=== PATIENT | female | born 1990 | race Caucasian/White ===

== ENCOUNTER 2016-05-11 18:37 | Emergency (ER) | payer MEDICAID, OTHER ==
[~2016-05-11] VITALS: Ht 165.1 cm; Wt 97.0 kg
[2016-05-11] MEDS ORDERED: SODIUM CHLORIDE FLUSH 10ML SYR IVF ONE (19:00)
[2016-05-11] MEDS ORDERED: SODIUM CHLORIDE 0.9% 1,000ML IVBOLUS ONE (19:00)
[2016-05-11 19:10] LABS: HEMOGLOBIN 13.9 g/dL (11.7-16.4)
[2016-05-11 19:24] LABS: ASPARTATE AMINO TRANSFERASE 12 U/L (15-37); BLOOD UREA NITROGEN 10 mg/dL (7-18)
[2016-05-11 20:17] LABS: PATH.CAST-FLAG NOT PRESENT; SPERM-FLAG NOT PRESENT; SRC-FLAG NOT PRESENT; XTAL-FLAG NOT PRESENT; YLC-FLAG NOT PRESENT
[2016-05-11 20:38] VITALS: BP 118/71
== END 2016-05-11 20:40 | disposition home or self-care (01) ==
LOC: ED 20:01
DX: O20.0 Threatened abortion (principal)
CPT/HCPCS: 36415; 51701; 76801; 80053; 81001; 84702; 85025; 86901; 87086; P9612

== ENCOUNTER 2016-12-03 14:20 | Outpatient (CLI) | payer MEDICAID | END 2016-12-03 16:53 | disposition home or self-care (01) | LOC: LDOP 14:20 | PROVIDERS: ATTEND Obstetrics & Gynecology | DX: O42.913 Preterm premature rupture of membranes, unspecified as to length of time between rupture and onset of labor, third trimester (principal); Z3A.34 34 weeks gestation of pregnancy | CPT/HCPCS: 59025; 89060; 99211; G0463; Q0114 ==

== ENCOUNTER 2017-01-03 03:57 | Inpatient (IN) | payer MEDICAID ==
[~2017-01-03] VITALS: Ht 165.1 cm; Wt 117.0 kg
[2017-01-03] MEDS ORDERED: D5%-LACTATED RINGERS 1,000 ML IV SCH (04:50)
[2017-01-03] MEDS ORDERED: OXYTOCIN 30U/ 0.9% NaCL 500ML 500 ML IV ONE (04:50)
[2017-01-03 04:56] VITALS: BP 140/87
[2017-01-03] MEDS ORDERED: NEWBORN KIT ONE (04:59)
[2017-01-03] MEDS ORDERED: ONDANSETRON 2MG/ML, 2ML IVPush PRN (05:00)
[2017-01-03] MEDS ORDERED: METOCLOPRAMIDE 5 MG/ML, 2ML IVPush PRN (05:00)
[2017-01-03] MEDS ORDERED: SODIUM CITRATE/CITRIC ACID 30 ML UDC PO PRN (05:00)
[2017-01-03] MEDS ORDERED: CALCIUM CARBONATE 500 MG TAB.CHEW PO PRN (05:00)
[2017-01-03] MEDS ORDERED: FENTANYL PF 100 MCG/2ML IVPush PRN (05:00)
[2017-01-03] MEDS ORDERED: OXYTOCIN 30U/ 0.9% NaCL 500ML 500 ML ONE ×2 (05:39→15:23)
[2017-01-03 06:10] LABS: HEMATOCRIT 32.7 % (34.6-47.8); HEMOGLOBIN 11.1 g/dL (11.7-16.4); WHITE BLOOD COUNT 9.9 x10^3/uL (3.4-10)
[2017-01-03 06:21] LABS: ASPARTATE AMINO TRANSFERASE 12 U/L (15-37); BLOOD UREA NITROGEN 13 mg/dL (7-18)
[2017-01-03] MEDS ORDERED: OXYTOCIN 30U/ 0.9% NaCL 500ML 500 ML IV PRN (15:26)
[2017-01-03] MEDS ORDERED: BUPIVACAINE/PF 0.25% ONE (15:31)
[2017-01-03] MEDS ORDERED: FENTANYL/BUPIV./NS/PF 250 ML EPIDCONT ONE (15:31)
[2017-01-03] MEDS ORDERED: BUPIVACAINE 0.25% ONE (15:35)
[2017-01-03] MEDS: LACTATED RINGERS 1,000 ML IV SCH ×2 (15:59→20:08)
[2017-01-03] MEDS ORDERED: LACTATED RINGERS 1,000 ML IV SCH (16:03)
[2017-01-03] MEDS ORDERED: FENTANYL/BUPIV./NS/PF 250 ML EPIDCONT SCH (16:03)
[2017-01-03] MEDS ORDERED: LACTATED RINGERS 1,000 ML IVBOLUS PRN (16:30)
[2017-01-03] MEDS ORDERED: ONDANSETRON 2MG/ML, 2ML ONE (21:17)
[2017-01-04] MEDS ORDERED: LABETALOL 5MG/ML, 20ML IVPush PRN (00:30)
[2017-01-04] MEDS ORDERED: OXYTOCIN 30U/ 0.9% NaCL 500ML 500 ML ONE (05:18)
[2017-01-04] MEDS: OXYTOCIN 30U/ 0.9% NaCL 500ML 500 ML IV SCH ×2 (05:20→15:11)
[2017-01-04] MEDS ORDERED: ACETAMINOPHEN 325 MG TABLET PO PRN ×2 (05:30)
[2017-01-04] MEDS ORDERED: MISOPROSTOL 200 MCG TABLET PR PRN (05:30)
[2017-01-04] MEDS ORDERED: HYDROcodone/APAP 5/325 TABLET PO PRN ×2 (05:30)
[2017-01-04] MEDS ORDERED: IBUPROFEN 600 MG TABLET ONE (07:40)
[2017-01-04] MEDS: IBUPROFEN 600 MG TABLET PO PRN ×2 (07:43→17:54)
[2017-01-04] MEDS: PRENATAL VIT/IRON/FA 1 EACH TABLET PO SCH (09:00)
[2017-01-04 09:15] VITALS: BP 123/77
[2017-01-04 12:00] VITALS: BP 122/75
[2017-01-04 13:09] LABS: HEMATOCRIT 27.6 % (34.6-47.8); HEMOGLOBIN 9.2 g/dL (11.7-16.4); WHITE BLOOD COUNT 13.1 x10^3/uL (3.4-10)
[2017-01-04 21:50] VITALS: BP 120/66
[2017-01-05] MEDS: IBUPROFEN 600 MG TABLET PO PRN ×4 (00:21→22:45)
[2017-01-05] MEDS: OXYTOCIN 30U/ 0.9% NaCL 500ML 500 ML IV SCH ×3 (01:11→21:11)
[2017-01-05 02:31] VITALS: BP 130/83
[2017-01-05 08:05] VITALS: BP 130/79
[2017-01-05] MEDS: PRENATAL VIT/IRON/FA 1 EACH TABLET PO SCH (08:52)
[2017-01-05] MEDS: DOCUSATE 100 MG CAPSULE PO PRN ×2 (08:52→22:45)
[2017-01-05] MEDS ORDERED: HYDR-3240 PO (08:53)
[2017-01-05] MEDS ORDERED: IBUP-1222 PO (08:53)
[2017-01-05] MEDS ORDERED: SENN-1 PO (08:54)
[2017-01-05] MEDS ORDERED: FERR324T8 PO (08:55)
[2017-01-05 21:30] VITALS: BP 130/68
[2017-01-06] MEDS: IBUPROFEN 600 MG TABLET PO PRN ×2 (05:04→11:21)
[2017-01-06] MEDS: OXYTOCIN 30U/ 0.9% NaCL 500ML 500 ML IV SCH (07:11)
[2017-01-06 07:59] VITALS: BP 131/76
[2017-01-06] MEDS: PRENATAL VIT/IRON/FA 1 EACH TABLET PO SCH (11:21)
[2017-01-06] MEDS: DOCUSATE 100 MG CAPSULE PO PRN (11:21)
== END 2017-01-06 13:00 | disposition home or self-care (01) | DRG 775 ==
LOC: LDOP 03:57 → LDIP 04:52 → 2NW 01-04 09:10
PROVIDERS: ADMIT Obstetrics & Gynecology; ATTEND Obstetrics & Gynecology
PROC: 0KQM0ZZ Repair Perineum Muscle, Open Approach (ICD-10-PCS; principal; 2017-01-03)
PROC: 10E0XZZ Delivery of Products of Conception, External Approach (ICD-10-PCS; 2017-01-03)
PROC: 3E0R3BZ Introduction of Anesthetic Agent into Spinal Canal, Percutaneous Approach (ICD-10-PCS; 2017-01-03)
PROC: 00HU33Z Insertion of Infusion Device into Spinal Canal, Percutaneous Approach (ICD-10-PCS; 2017-01-03)
PROC: 0HB9XZZ Excision of Perineum Skin, External Approach (ICD-10-PCS; 2017-01-03)
DX: O48.0 Post-term pregnancy (principal); O70.1 Second degree perineal laceration during delivery; Z37.0 Single live birth; Z3A.41 41 weeks gestation of pregnancy; O99.72 Diseases of the skin and subcutaneous tissue complicating childbirth
CPT/HCPCS: 36415; 80053; 81001; 82248; 84550; 85025; 86850; 86900; 87086; 88304; J2405; J3490; J2590; J7120; J7121

== ENCOUNTER 2017-01-08 09:40 | Emergency (ER) | payer MEDICAID ==
[~2017-01-08] VITALS: Ht 165.1 cm; Wt 116.8 kg
[~2017-01-08 09:40] MED LIST: FERR324T8 PO; HYDR-3240 PO; IBUP-1222 PO; SENN-1 PO
[2017-01-08 11:07] VITALS: BP 125/78
== END 2017-01-08 11:10 | disposition home or self-care (01) ==
LOC: ED 10:27
DX: N30.01 Acute cystitis with hematuria (principal)
CPT/HCPCS: 81001; 87077; 87086; 87186; 99283; 99284